=== PATIENT | female | born 1955 | race Caucasian/White ===

== ENCOUNTER → 2018-08-31 | Outpatient (CLI) | payer OTHER ==
--- NOTE | 2018-08-31 16:31 | Diagnostic Imaging Report ---
TECHNIQUE: Magnetic resonance imaging of the RIGHT SHOULDER was performed WITHOUT injected contrast. HISTORY: Pain, OSTEOARTHRITIS / SHOULDER PAIN, no reported history of surgery COMPARISON: None available. FINDINGS: MUSCLES AND TENDONS: Rotator Cuff: Tendons: Supraspinatus and Infraspinatus: Thickening and increased intrasubstance signal of the supraspinatus and adjacent conjoined infraspinatus fibers with a focal full-thickness tear of the anterior fibers (series 11 image 7). No tendon retraction. Teres Minor: Intact Subscapularis: Intact Muscles: No focal muscle atrophy. Biceps Tendon: The long head of the biceps tendon is within the intertubercular groove. Complex low-grade to intermediate grade partial tearing of the intra-articular and intertubercular portion. GLENOHUMERAL JOINT: Glenoid Labrum: Complex tearing and attenuation, most notably the superior and posterosuperior labrum. Articular Cartilage: Low-grade diffuse erosion. Joint Fluid: No effusion. ACROMIOCLAVICULAR JOINT: Severe hypertrophic degenerative changes of the acromioclavicular joint. Synovitis and moderate effusion. BONE: The acromion is unremarkable. The bone marrow signal is heterogeneous, compatible with red marrow conversion, no specific evidence of a focal bone marrow replacing abnormality. No acute fracture. Enthesopathic cystic changes, most notably the anterior aspect of the greater tuberosity of the humerus. SOFT TISSUES: Otherwise, unremarkable. IMPRESSION: 1. Supraspinatus greater than infraspinatus tendinosis with a focal full-thickness tear of the anterior fibers of the supraspinatus tendon. 2. Tendinosis with degenerative tearing of the long head of biceps tendon. 3. Severe acromioclavicular and mild glenohumeral degenerative changes, including degenerative tearing of the labrum. Signed by: Dr. Taz Hernandez D.O., M.M.M. on 08/31/2018 4:27 PM
--- NOTE | 2018-08-31 16:37 | Diagnostic Imaging Report ---
TECHNIQUE: Magnetic resonance imaging of the LEFT SHOULDER was performed WITHOUT injected contrast. HISTORY: Pain, OSTEOARTHRITIS / SHOULDER PAIN, no reported history of surgery COMPARISON: None available. FINDINGS: MUSCLES AND TENDONS: Rotator Cuff: Tendons: Supraspinatus and Infraspinatus: Mild thickening and intrasubstance degeneration of the supraspinatus and adjacent conjoined infraspinatus tendons. Irregular linear signal within the anterior fibers of the supraspinatus, extending from the articular to the bursal surface, but no associated tendon retraction. Teres Minor: Intact Subscapularis: Intact Muscles: No focal muscle atrophy. Biceps Tendon: The long head of the biceps tendon is increased intrasubstance signal of the intra-articular portion with low-grade complex partial tearing. GLENOHUMERAL JOINT: Glenoid Labrum: Complex tearing and attenuation, most notably the superior, posterior superior, and inferior labrum. Articular Cartilage: Diffuse intermediate grade erosion. Joint Fluid: No effusion. ACROMIOCLAVICULAR JOINT: Moderate hypertrophic degenerative changes of the acromioclavicular joint. Synovitis and trace effusion. BONE: The acromion is unremarkable. The bone marrow signal is heterogeneous, compatible with red marrow conversion, no specific evidence of a focal bone marrow replacing abnormality. No acute fracture. SOFT TISSUES: Otherwise, unremarkable. IMPRESSION: 1. Supraspinatus greater than infraspinatus tendinosis with a very small focal full-thickness tear of the anterior fibers of the supraspinatus tendon. 2. Tendinosis with low-grade partial degenerative tearing of the intra-articular portion of the long head of biceps tendon. 3. Moderate acromioclavicular and mild glenohumeral degenerative changes, including degenerative tearing of the labrum. Signed by: Dr. Taz Hernandez D.O., M.M.M. on 08/31/2018 4:34 PM
--- NOTE | 2018-09-02 07:31 | Diagnostic Imaging Report ---
History: Neck and shoulder pain Comparison studies: None Technique: Sagittal T1, T2 and IR, axial T2, axial T1 and axial gradient echo Intravenous contrast: None Findings: Alignment: Mildly straightened curvature. Cervicomedullary junction: No abnormalities. Patent foramen magnum. Soft tissues: No T2 hyperintense inflammatory changes. Spinal cord: Normal in size and signal from the foramen magnum through T1. Vertebrae: No fractures, infection or neoplasm. Surgical changes: Anterior cervical discectomy and fusion (ACDF) from C5 to T1 with anterior fixation plate in place and solid interbody fusion at these levels. Degenerative changes: C2-C3: Small asymmetric right disc osteophyte complex and uncovertebral arthrosis with mild to moderate foraminal stenosis and mild canal stenosis. C3-C4: Mildly degenerated disc. Disc osteophyte complex, thickened ligamentum flavum uncovertebral arthrosis and facet arthrosis with mild/moderate canal canal stenosis and mild bilateral foraminal stenosis. C4-C5: Mildly degenerated disc. Disc ossify complex, thickened ligamentum flavum, and uncovertebral arthrosis with mild canal stenosis and mild bilateral foraminal stenosis. C5-C6: Uncovertebral arthrosis and facet arthrosis result in mild left foraminal stenosis. Patent canal and right foramen. C6-C7: Patent canal and foramina. C7-T1: Patent canal and foramina. T1 T2 through T3-T4: Mildly degenerated disks with small disc bulges. Patent canal and foramina. IMPRESSION: 1. Surgical changes of C5-T1 ACDF. 2. Degenerative changes most notable for mild multilevel disc disc degeneration, mild to moderate canal stenosis at C3-C4, mild canal stenosis at C2-C3 and at C4-C5 and multilevel foraminal stenosis (mild to moderate at C2-C3). Signed by: Dr. Jay Winkler M.D. on 09/02/2018 7:28 AM
== END ==
LOC: MRI 12:55
PROVIDERS: ATTEND Specialist
DX: M54.2 Cervicalgia (principal); M25.512 Pain in left shoulder; M25.511 Pain in right shoulder
CPT/HCPCS: 72141